=== PATIENT | female | born 1980 | race Caucasian/White ===

== ENCOUNTER → 2022-09-06 09:31 | Outpatient (BNVA) | payer OTHER, SELFPAY | PROVIDERS: Family Provider Nurse Practitioner Family; PCP Nurse Practitioner Family; Visit Provider Podiatrist Foot & Ankle Surgery | DX: M19.071 Primary osteoarthritis, right ankle and foot (principal); M79.89 Other specified soft tissue disorders | CPT/HCPCS: 73630 ==

== ENCOUNTER 2022-09-27 07:06 | Outpatient (CLI) | payer OTHER, SELFPAY ==
--- NOTE | 2022-09-27 07:15 | MR_ITS ---
WS: [id number] MRI RIGHT FOOT without CONTRAST. COMPARISON: Radiographs 09/06/2022 Multiplanar, multisequence imaging is performed without contrast. Palpable mass along the dorsal surface of the foot is at the level of the proximal metatarsals. Palpa ble area is between the proximal first and second metatarsals and is of decreased signal on the T1 an d increased signal on the T2 and round in appearance. There may be a very small neck extending into t he tarsal metatarsal joint space. This is best seen on the axial T2 ideal image. Mass measures 5 x 6 mm. This is a very nonspecific mass but due to its location and appearance this is probably a ganglio n or synovial cyst which is emanating from the joint space. No bone erosions and no additional signif icant features. No significant edema associated with the mass. There is mild thinning of the soft tis sues along the dorsal surface of the foot of uncertain etiology. No prior surgery was performed as pe r the patient. No fractures or marrow edema. Distal Achilles tendon is negative. No erosions at the metatarsal heads . MR/MR foot RT wo con* [id number] IMPRESSION: 1. Palpable mass along the dorsal surface of foot measures 5 x 6 mm. Mass is c entered approximately between the first and second metatarsals. Suspect there m ay be a very small tract extending inferior to her so suggests this could be a synovial cyst or ganglion. Not typical for lipoma and no associated bone erosio ns. 2. No fracture or marrow edema.
== END 2022-09-27 07:07 | disposition home or self-care (01) ==
PROVIDERS: PCP Family Medicine; Visit Provider Podiatrist Foot & Ankle Surgery
DX: Z01.818 Encounter for other preprocedural examination (principal); M79.89 Other specified soft tissue disorders; M19.079 Primary osteoarthritis, unspecified ankle and foot; R22.41 Localized swelling, mass and lump, right lower limb
CPT/HCPCS: 73718

== ENCOUNTER 2023-01-16 05:43 | Day surgery (SDC) | payer OTHER, SELFPAY ==
[2023-01-16] VITALS (15 sets, daily range): BP systolic 135–176; BP diastolic 88–103; PULSE 70–93; RESP 8–18; TEMP 36.1–36.8; O2SAT 92–100; BMI 49.1
[2023-01-16] MEDS: sodium chloride 0.9% 1,000 ML 30 ML IV (06:23)
--- NOTE | 2023-01-16 06:42 | ANES.PREANE2 ---
Pre-Anesthetic Assessment Height/Weight: Height 1.47 m Weight 106.594 kg Temp Pulse Resp BP Pulse Ox O2 Del Method 97.3 F L 75 18 171/99 96 Room Air 01/16/23 05:57 01/16/23 05:57 01/16/23 05:57 01/16/23 05:57 01/16/23 05:57 01/16/23 06:01 Preop Diagnosis: Right foot soft tissue mass Operation Date: 01/16/23 07:00 Proposed Procedures p Right foot soft tissue mass excision less than 1.5 cm CPT 53412,M67.411(Right) - Danielito Gonzalez DPM Familial anesthetic complications: None Was Beta Naveen taken within 24 hours: N/A Was Clonidine taken within 24 hours: N/A Last intake: Intake Last Liquid Date 01/15/23 Last Liquid Time 22:30 Last Solid Date 01/15/23 Last Solid Time 21:30 Social No alcohol and No tobacco Exam alert, oriented x 3, clear to auscultation bilaterally and regular rate & rhythm Airway Mallampati: Class II Dentition: full CV/HEM Hypertension Anesthetic Plan ASA status: 2 Anesthesia: MAC Risk of > 500 ml blood loss (7ml/kg in children): No Medications/Allergies Home Medications Medication Instructions Recorded Confirmed Last Taken Type diclofenac sodium 1 % topical gel 2 g topical QID 09/06/22 01/15/23 Unknown History (Arthritis Pain (diclofenac)) paroxetine HCl 20 mg tablet 20 mg PO DAILY 09/06/22 01/15/23 01/16/23 History amitriptyline 10 mg tablet 10 mg PO DAILY 12/27/22 01/15/23 01/15/23 History amlodipine 5 mg tablet 5 mg PO DAILY 12/27/22 01/15/23 01/15/23 History atorvastatin 10 mg tablet 10 mg PO DAILY 12/27/22 01/15/23 01/15/23 History hydrochlorothiazide 25 mg tablet 25 mg PO DAILY 12/27/22 01/15/23 01/15/23 History losartan 50 mg tablet 100 mg PO DAILY 12/27/22 01/15/23 01/16/23 History Allergies Allergy/AdvReac Type Severity Reaction Status Date / Time Penicillins Allergy Intermediate ALGY-Rash Verified 01/15/23 12:56 latex Allergy ADR-Itching Verified 01/15/23 12:56 Current Medications Generic Name Dose Route Start Last Admin Trade Name Freq PRN Reason Stop Dose Admin Sodium Chloride 1,000 mls @ 30 mls/hr 01/16/23 06:00 01/16/23 06:23 Sodium Chloride 0.9% IV 01/17/23 05:59 30 mls/hr .Q24H GRETA Administration Data Anesthesia Cardiac Studies: No Data to Display
--- NOTE | 2023-01-16 06:55 | P.HPUD_ITS ---
Surgery/Procedure H&P Update DATE OF PROCEDURE: January 16, 2023 DATE H&P PERFORMED: 12/27/22 H&P UPDATE INFORMATION: I have reviewed H&P completed within last 30 days, I have examined patient prior to procedure, No changes to prior documentation and H&P is in [facility] – [place], [place] EMR on date indicated PREOP DIAGNOSIS: Right foot soft tissue mass PLANNED PROCEDURE: Operation Date: 01/16/23 07:00 Proposed Procedures p Right foot soft tissue mass excision less than 1.5 cm CPT 73169,M67.411(Right) - Danielito Gonzalez DPM
[2023-01-16] MEDS: ceFAZolin 2,000 MG in sodium chloride 0.9% (plus) 50 ML 100 MG IV (07:00)
[2023-01-16] MEDS: BUPivacaine 0.5% INJ 30 mL INJECTION (07:27)
--- NOTE | 2023-01-16 08:00 | W.PM.BPON ---
Date of procedure: 01/16/2023 Surgeon name: Dr. Danielito Gonzalez D.P.M. [employer] [place](s) name(s): None Procedure(s) performed: Exploration deep tissue right foot Description of findings: No soft tissue mass appreciated to the right foot in the area indicated on MRI Estimated blood loss: 3 cc Specimen(s) removed: None Post-operative diagnosis: Soft tissue mass right foot
--- NOTE | 2023-01-16 08:22 | PC.NURSE ---
0822 - notified Dr Grossman of pacu BP - this nurse instructed pt to take BP meds once at home
[2023-01-16] MEDS: fentaNYL 50 mcg/mL INJ 2mL IVP (08:35)
--- NOTE | 2023-01-16 08:57 | P.OP_ITS ---
Operative Report Date of procedure: January 16, 2023 Pre-op diagnosis: Soft tissue mass right foot Post-op diagnosis: Subsidence of synovial cyst right foot Post-op findings: Intraoperative findings revealed no presence of soft tissue mass despite what was present on MRI. Given these findings potential differentials are ganglion cyst or synovial cyst that had subsided prior to surgery Procedure done: Exploration soft tissues right foot with removal of fatty tissue CPT 28331 Specimens removed/disposition: None Surgeon: Danielito Gonzalez DPM Estimated blood loss: 3 cc 15 minutes Complications: None Findings: See above Procedure: Patient is a 42-year-old female that has a history of right foot soft tissue mass. The patient has had the aforementioned chief complaint for some time. Conservative treatment measures have been attempted and the patient has opted for surgical intervention at this time. A lengthy discussion regarding the procedure, including risks and complications has been had with the patient and is noted in the recent clinic note. Written and verbal consent have been obtained. All patient questions have been answered to the patient?s satisfaction. No written or verbal guarantees have been given or implied. In discussion with the patient in the preoperative area she states that she is trying to feel for the mass last night but was unable to pinpoint the exact location of the mass. At bedside this morning, again, we discussed the location of the soft tissue mass and this was not readily examined on physical exam. We decided that we would base incision placement off of recent MRI obtained which showed soft tissue mass. MRI was reviewed which showed soft tissue mass present over the base of the second metatarsal at the tarsometatarsal joint articulation. The patient has been NPO since midnight. The history has been reviewed and the history and physical is current. The signed consent was confirmed and placed in the patient chart. Patient imaging has been reviewed and is consistent with the diagnosis. Under mild sedation, the patient was brought into the operating room and placed on the table in the supine position. IV antibiotics were given by the anesthesia team as preoperative surgical prophylaxis. General sedation was then performed by the anesthesiateam. A local field block was then performed using 0.5% Marcaine plain. A pneumatic tourniquet was then placed about the right thigh. The operative extremity was then prepped and draped in the usual fashion. The extremity was then elevated and exsanguinated before the tourniquet was inflated to 325 mmHg. After inflation, the following procedure was then performed. Attention was directed to the dorsum of the right foot over the second tarsometatarsal joint. A 3.5 cm incision was made using a #15 blade. Blunt di ssection was carried down through subcutaneous and superficial fascia. No soft tissue mass was visualized through these layers. The neurovascular bundle was identified and retracted safely out of the operative field. Blunt dissection was carried down to the level of the tarsometatarsal joint articulation. Again, no soft tissue mass was visualized in this area. The tissues in this area appeared healthy and viable. No soft tissue mass capsule was identified. Careful dissection was carried out around the neurovascular bundle to assess for any adjacent soft tissue mass. Again, no soft tissue mass was visualized at this level. Dissection was carried out through the distal and proximal aspects of the incision exploring for any soft tissue mass. Again, no soft tissue mass or sign of mass was visualized in this area. Based on these findings as well as the preoperative clinical findings my suspicion was for synovial cyst that has resolved. The site was irrigated with copious amounts of sterile saline before attention was directed to closure. Subcuticular closure was performed with 4-0 Vicryl followed by skin closure with 4-0 nylon. The tourniquet was let down and good hyperemic response was noted to all digits of the right foot. The incision site was dressed with Xeroform, 4 x 4 gauze, Kerlix, Coban. The patient tolerated the procedure and anesthesia well and without com plication. The patient was transported from the operating room to the recovery room with vital signs stable and vascular status intact to all digits of the right foot. The patient was given both written and verbal instructions to remain weightbearing as tolerated to the operative extremity, to keep dressings/splint clean, dry and intact and to take pain medication as directed. The patient will follow-up in the outpatient setting at their scheduled appointment. The patient was discharged with my personal number and was instructed to call if any questions or issues should arise. They were discharged home once anesthesia criteria was met.
--- NOTE | 2023-01-16 09:30 | ANE.PACU2 ---
Inpatient post-anesthesia follow up: Airway intact: Yes Vital signs: Temperature 98.3 F Pulse Rate 75 Respiratory Rate 16 Blood Pressure 138/88 Pulse Oximetry 96 Oxygen Delivery Me thod Room Air Oxygen Flow Rate 6 Fraction of Inspir ed Oxygen Hydration adequate: Yes Nausea and vomiting: No Pain level: 1 Mental status: Baseline
== END 2023-01-16 09:32 | disposition home or self-care (01) ==
PROVIDERS: PCP Family Medicine; Visit Provider Podiatrist Foot & Ankle Surgery
PROC: (CPT 28043; principal; 2023-01-16 07:00)
DX: M79.89 Other specified soft tissue disorders (principal); M79.671 Pain in right foot; M19.071 Primary osteoarthritis, right ankle and foot; M71.371 Other bursal cyst, right ankle and foot
CPT/HCPCS: 28043; J0690; J2405; J2704; J3010; J3490; J7030